=== PATIENT | female | born 1985 | race Two or more races ===

== ENCOUNTER 2018-08-17 16:23 | Emergency (ER) | payer SELFPAY ==
[~2018-08-17] VITALS: Ht 170.2 cm; Wt 64.4 kg
--- NOTE | 2018-08-17 16:25 | NUR ---
aaox3, c/o hematuria x 2 days. Denies any pain. skin is warm and dry. awaiting md for eval.
[2018-08-17 17:20] LABS: BASOPHILS % (AUTO) 0.5 % (0.0-2.0); EOSINOPHILS % (AUTO) 1.2 % (0.0-6.0); HEMATOCRIT 35 % (33-45); HEMOGLOBIN 11.8 g/dL (11.5-14.8); LYMPHOCYTES # (AUTO) 0.9 /CMM (0.8-4.8); LYMPHOCYTES % (AUTO) 16.7 % (20.0-44.0); MEAN CORPUSCULAR HGB CONC 33 g/dl (31.0-36.0); MEAN CORPUSCULAR VOLUME 85 fL (82-100); MONOCYTES # (AUTO) 0.5 /CMM (0.1-1.30); MONOCYTES % (AUTO) 8.1 % (2.0-12.0); NEUTROPHILS # (AUTO) 4.1 /CMM (1.8-8.9); NEUTROPHILS % (AUTO) 73.5 % (43.0-81.0); PLATELET COUNT (AUTO) 223 /CMM (150-450); RED BLOOD CELL COUNT(AUTO) 4.18 MIL/uL (4.0-5.2); WHITE BLOOD COUNT (AUTO) 5.6 K/uL (4.3-11.0)
[2018-08-17 17:27] LABS: CALCIUM, SERUM 9.6 mg/dL (8.5-10.1); CREATININE 0.7 mg/dL (0.6-1.3); POTASSIUM 4.6 mmol/L (3.5-5.1)
--- NOTE | 2018-08-17 17:30 | NUR ---
Patient is resting comfortably in bed with eyes closed. Easily aroused. VSS
[2018-08-17 17:37] LABS: APPEARANCE,URINE Clear (CLEAR); BILIRUBIN,URINE Negative (NEGATIVE); BLOOD, URINE Negative Ery/uL (NEGATIVE); COLOR,URINE Yellow (YELLOW); KETONES,URINE Trace (NEGATIVE); LEUKOCYTE ESTERASE ,URINE Trace (NEGATIVE); NITRITE, URINE Negative (NEGATIVE); PROTEIN,URINE 30 mg/dl (NEGATIVE); UGLUCOSE Negative (NEGATIVE); UROBILINOGEN,URINE 0.2 EU/dL (0.2)
[2018-08-17 17:39] LABS: BACTERIA,URINE Few /HPF (None Seen); MUCUS,URINE Moderate /LPF (None Seen); RBC,URINE 0-2 /HPF (0-2); SQUAMOUS EPITHELIAL CELL,UR Many /HPF (None Seen); URINE AMORPHOUS URATE Moderate /HPF (None Seen); WBC,URINE 2-3/HPF /HPF (0-3)
[2018-08-17 17:54] LABS: ALBUMIN 4.2 g/dL (3.4-5.0); BILIRUBIN,TOTAL 0.3 mg/dL (0.2-1.0); TOTAL PROTEIN, SERUM 8.1 g/dL (6.4-8.2)
--- NOTE | 2018-08-17 18:58 | NUR ---
Patient discharged to home in stable condition. Written and verbal after care instructions given. Patient verbalizes understanding of instruction.
[2018-08-17 19:01] VITALS: BP 115/72
== END 2018-08-17 19:03 | disposition home or self-care (01) ==
LOC: ER 16:23
DX: O20.8 Other hemorrhage in early pregnancy (principal); G43.909 Migraine, unspecified, not intractable, without status migrainosus; Z3A.01 Less than 8 weeks gestation of pregnancy
CPT/HCPCS: 36415; 76856; 80053; 81001; 84702; 85025; 99284; A4606; 81000-TC

== ENCOUNTER 2018-08-22 22:25 | Emergency (ER) | payer SELFPAY ==
[~2018-08-22] VITALS: Ht 170.2 cm; Wt 59.9 kg
--- NOTE | 2018-08-22 23:10 | NUR ---
Note bean in EDM - 08/22/18 at 2339 by MILEY 2310 CPR STARTED WITH CONTINUOUS BAGGING 2311 0.5MG ATROPINE GIVEN IV RAC 18G 2312 1MG EPINEPHRINE GIVEN IV RAC 18G 2312 HOLD COMPRESSIONS, CHECK PULSE, HR 55, BP 58/18 2312 RESUME CPR 2313 HOLD COMPRESSIONS, CHECK PULSE 2313 RESUME CPR 2314 SHOCK AT 120J BY DR LEMA. CPR RESUMED 2314 HOLD COMPRESSIONS, CHECK PULSE 2315 PT IN A-FIB 2315 RESUME CPR 2316 1MG EPI AND 0.5MG ATROPINE GIVEN IV RAC 18G 2316 HOLD COMPRESSIONS, HR 106, BP 168/123, PT IN A-FIB. CODE ENDED.
--- NOTE | 2018-08-22 23:39 | NUR ---
CALLED DR BELLA RAZO [employer] [phone], AWAITING CALLBACK
--- NOTE | 2018-08-22 23:50 | NUR ---
ASSUMED CARE OF PT.
--- NOTE | 2018-08-23 00:28 | NUR ---
US IS AT THE BEDSIDE. DR LEMA IS AWARE.
--- NOTE | 2018-08-23 00:33 | NUR ---
US IN PROGRESS AT THE BEDSIDE. Female rn ostomy, MACIEJ FERNÁNDEZ, accompanied female patient for US TECH.
--- NOTE | 2018-08-23 01:28 | NUR ---
CALLING LING RE: US READ.
--- NOTE | 2018-08-23 01:31 | NUR ---
CALLING PT'S [employer] HELPER DR. RAZO. [phone]. LEFT MESSAGE FOR DR RAZO TO CALL DR LEMA BACK.
--- NOTE | 2018-08-23 01:34 | NUR ---
DR. LEMA IS AT THE BEDSIDE SPEAKING TO THE PT RE: US FINDINGS.
[2018-08-23 02:19] VITALS: BP 159/89
== END 2018-08-23 02:19 | disposition home or self-care (01) ==
LOC: ER 22:26
DX: O20.0 Threatened abortion (principal)
CPT/HCPCS: 36415; 76856-TC; 84702-TC